=== PATIENT | female | born 1955 | race African-American/Black ===

== ENCOUNTER 2022-10-05 10:19 | Emergency (ER) | payer MEDICARE, MEDICAID | END 2022-10-05 12:30 | disposition home or self-care (01) | LOC: CSHERS 10:19 | DX: S00.83XA Contusion of other part of head, initial encounter (principal); W19.XXXA Unspecified fall, initial encounter | CPT/HCPCS: 70450; 70486; 72125 ==

== ENCOUNTER 2023-06-09 09:42 | Outpatient (CLI) | payer MEDICARE, MEDICAID | END 2023-06-09 09:43 | disposition home or self-care (01) | LOC: CSHRAD 09:42 | PROVIDERS: ATTEND Family Medicine | DX: R06.02 Shortness of breath (principal) | CPT/HCPCS: 71046 ==